=== PATIENT | male | born 1995 | race Caucasian/White ===

== ENCOUNTER 2022-05-01 17:25 | Emergency (ER) | payer BC ==
[~2022-05-01] VITALS: Ht 185.4 cm; Wt 86.4 kg
[2022-05-01 17:46] VITALS: BP 153/78
[2022-05-01] MEDS ORDERED: sulfamethoxazole/trimethoprim DS (800/160mg) tablet PO ONE (18:35)
[2022-05-01] MEDS ORDERED: bacitracin 15gm ointment TP ONE (18:35)
[2022-05-01] MEDS ORDERED: LIDOcaine 1%/PF 5ML 10 MG/ML VIAL IJ ONE (18:35)
[2022-05-01] MEDS ORDERED: SULF1TAB49 PO (18:37)
== END 2022-05-01 21:00 | disposition home or self-care (01) ==
LOC: ER 17:26
DX: L05.91 Pilonidal cyst without abscess (principal)
CPT/HCPCS: 10080; 99283; A6266; J3490; J7030; 10060; A6258; A6449